=== PATIENT | female | born 1975 | race Caucasian/White ===

== ENCOUNTER 2019-04-13 12:45 | Emergency (ER) | payer BC, SELFPAY ==
[2019-04-13 12:56] VITALS: BP 137/85; PULSE 72; RESP 16; TEMP 36.5; O2SAT 100
--- NOTE | 2019-04-13 13:08 | ED.GENADUL_ITS ---
Discharge Plan Disposition Patient Disposition: HOME Condition: Stable Discharge Details Chief Complaint: Laceration Clinical Impression: Open wound of left hand Primary Care Provider: None,None ED Provider: Ernie Easton Discharge Instructions Instructions: Skin Adhesive Care (ED) Additional Instructions: if redness spreads away from the wound, you have yellow/white discharge from the wound or severe pain return to the emergency department Medical Decision Making 44 yo female accidentally cut her left hand with a knife today. She did not fall or sustain injuries. Has superficial wound that is 1cm in length and in is between the thumb and index finger in the web space. Full rom of the fingers and intact sensation and pulses. Closed with skin adhesive, return precautions for infectious signs given Differential Diagnosis laceration, abrasion HPI General Mode of arrival: ambulatory . Date/Time Provider Initiated Documentation: 04/13/19 12:49 . Limitations to Documentation: no limitations . Information obtained by: patient . History of Present Illness 44 year old F presents to the emergency department with the chief complaint of left hand laceration, described as moderate, Quality is described as aching, and is localized to the left and upper extremity. Patient reports no radiation. Patient started experiencing this hour(s) (1) and it has been constant. No relieving factors improve symptom(s), No exacerbating factors reported . Patient notes no other symptoms.. General Stated Complaint: Laceration OLIVIA: 4 Review of Systems Review of Systems All systems reviewed & are unremarkable except as noted in HPI and below Constitutional Denies chills, Denies fever(s) and Denies weakness Cardiovascular Denies chest pain and Denies dyspnea Respiratory Denies cough and Denies dyspnea Gastrointestinal Denies abdominal pain, Denies nausea and Denies vomiting Musculoskeletal Denies joint swelling Neurologic Denies weakness Exam Const General: no acute distress Orientation: alert [facility] Head: normal to inspection Ears: external ears normal General nose exam: external nose normal Mouth: moist mucous membranes Eyes General: appearance normal, both eyes and all related structures Neck Neck: normal visual inspection Resp Effort & Inspection: normal respiratory effort and able to speak in complete sentences Cardio Rate: regular rate Skin General skin exam: no rashes or lesions noted Neuro General: alert and oriented x3 Extrem General: full ROM and normal capillary refill Psych Mental Status: mental status grossly normal Course Vital Signs Temperature 36.5 C 04/13/19 12:56 Pulse 72 04/13/19 12:56 Respiratory Rate 16 04/13/19 12:56 Blood Pressure 137/85 04/13/19 12:56 Pulse Oximetry 100 04/13/19 12:56 Temperature 36.5 C 04/13/19 12:56 Temperature Source Skin 04/13/19 12:56 Pulse 72 04/13/19 12:56 Respiratory Rate 16 04/13/19 12:56 Blood Pressure 137/85 04/13/19 12:56 Blood Pressure Position Sitting 04/13/19 12:56 Pulse Oximetry 100 04/13/19 12:56 Oxygen Delivery Method Room Air 04/13/19 12:56 Oxygen Flow Rate 0 04/13/19 12:56 Pain Level 3 04/13/19 12:56 Procedures Laceration Laceration 1: Site: hand Side (If applicable): left Size (cm): 1 Description: linear Depth: simple, single layer Pre-repair: irrigated extensively Skin layer closed with: other (skin adhesive)
== END 2019-04-13 13:30 | disposition home or self-care (01) ==
PROVIDERS: Emergency Provider Emergency Medicine
DX: S61.412A Laceration without foreign body of left hand, initial encounter (principal); W26.0XXA Contact with knife, initial encounter
CPT/HCPCS: 12001